=== PATIENT | male | born 1960 | race Asian ===

== ENCOUNTER 2021-05-20 18:11 | Inpatient (IN) | payer BC ==
[2021-05-20 18:20] VITALS: BMI 24.6
[2021-05-20] MEDS ORDERED: SODIUM CHLORIDE 1,000 ML IV STA (18:32)
[2021-05-20] MEDS ORDERED: KETOROLAC TROMETHAMINE 30 MG/1 ML VIAL IVPUSH ONE (18:32)
[2021-05-20] MEDS ORDERED: KETOROLAC TROMETHAMINE 30 MG/1 ML VIAL ONE (18:35)
[2021-05-20 18:50] LABS: BASO % 1.2 % (0-2.0); EOS % 1.9 % (0-4.5); HEMATOCRIT 38.5 % (35.4-49); HEMOGLOBIN 13.5 GM/dL (11.7-16.9); LYMPH % 14.6 % (8-40); MCH 32.2 pg (25.7-33.7); MEAN CELL VOLUME 91.9 fl (80-96); MEAN PLT VOLUME 7.9 fl (7.5-11.1); MONO % 6.7 % (3.8-10.2); NEUT % 75.6 % (42.8-82.8); PLATELET COUNT 363 10^3/uL (134-434); RBC 4.19 M/mm3 (4.00-5.60); RDW 12.4 % (11.9-15.9); WHITE BLOOD COUNT 11.9 K/mm3 (4.0-10.0)
[2021-05-20 18:57] LABS: PH,URINE 5.5 (5.0-8.0); URINE APPEARANCE Slightly Cloudy; URINE BILIRUBIN 2+ (NEGATIVE); URINE COLOR Amber; URINE GLUCOSE (UA) Negative (NEGATIVE); URINE KETONE Trace (NEGATIVE); URINE LEUK ESTERASE Negative (NEGATIVE); URINE NITRITE Positive (NEGATIVE); URINE PROTEIN 3+ (NEGATIVE)
[2021-05-20 19:12] LABS: CALCIUM 8.1 mg/dL (8.5-10.1)
[2021-05-20 19:13] LABS: ALBUMIN 3.1 g/dl (3.4-5.0)
[2021-05-20 19:17] LABS: CREATININE 1.1 mg/dL (0.55-1.3)
[2021-05-20 19:18] LABS: BILIRUBIN,TOTAL 0.6 mg/dL (0.2-1); TOT PROT 6.6 g/dl (6.4-8.2)
[2021-05-20] MEDS ORDERED: CEFTRIAXONE 1 GM in DEXTROSE 5%-WATER - 50 ML IVPB ONE (19:55)
[2021-05-20] MEDS ORDERED: CEFTRIAXONE 1 GM/50 ML BAG ONE (20:24)
[2021-05-20] MEDS ORDERED: SODIUM CHLORIDE 0.9% 500 ML INFUS.BAG IV ONE (21:06)
[2021-05-21] MEDS ORDERED: AZITHROMYCIN IVPB 500 MG in DEXTROSE 5%-WATER - 250 ML IVPB ONE (01:06)
[2021-05-21] MEDS ORDERED: ACETAMINOPHEN 325 MG TABLET (FP) PO PRN (01:38)
[2021-05-21] MEDS ORDERED: MORPHINE SULFATE 2 MG/ML VIAL IVPUSH PRN (01:38)
[2021-05-21] MEDS ORDERED: AZITHROMYCIN IVPB 500 MG/250 ML BAG IVPB ONE (01:45)
[2021-05-21] MEDS: SODIUM CHLORIDE 1,000 ML IV SCH ×2 (02:45→15:13)
[2021-05-21 06:23] LABS: BASO % 2.5 % (0-2.0); EOS % 1.1 % (0-4.5); HEMATOCRIT 35.6 % (35.4-49); HEMOGLOBIN 12.5 GM/dL (11.7-16.9); LYMPH % 11.7 % (8-40); MCH 32.4 pg (25.7-33.7); MCHC 35.2 g/dl (32.0-35.9); MEAN CELL VOLUME 92.1 fl (80-96); MEAN PLT VOLUME 8.5 fl (7.5-11.1); MONO % 5.2 % (3.8-10.2); NEUT % 79.5 % (42.8-82.8); PLATELET COUNT 305 10^3/uL (134-434); RBC 3.87 M/mm3 (4.00-5.60); RDW 12.4 % (11.9-15.9)
[2021-05-21 06:35] LABS: INR 1.05 (0.83-1.09); PROTHROMBIN TIME (PATIENT) 12.7 SEC (9.7-13.0)
[2021-05-21 06:46] LABS: ALBUMIN 2.8 g/dl (3.4-5.0); BLOOD UREA NITROGEN 14.3 mg/dL (7-18); CALCIUM 7.7 mg/dL (8.5-10.1); MAGNESIUM 2.3 mg/dL (1.8-2.4)
[2021-05-21 06:49] LABS: CREATININE 0.9 mg/dL (0.55-1.3); PHOSPHOROUS 3.7 mg/dL (2.5-4.9)
[2021-05-21 06:50] LABS: BILIRUBIN,TOTAL 0.5 mg/dL (0.2-1); TOT PROT 5.8 g/dl (6.4-8.2)
[2021-05-21] MEDS ORDERED: TAMSULOSIN HCL 0.4 MG CAP ONE (08:36)
[2021-05-21] MEDS: TAMSULOSIN HCL 0.4 MG CAP PO SCH (08:38)
[2021-05-21] MEDS ORDERED: cefTRIAXone SODIUM 1 GM VIAL ONE (09:23)
[2021-05-21] MEDS ORDERED: DEXTROSE 5%-WATER - 50 ML IVPB ONE (09:23)
[2021-05-21] MEDS: CEFTRIAXONE 1 GM in DEXTROSE 5%-WATER - 50 ML IVPB SCH (09:26)
[2021-05-21] MEDS: ENOXAPARIN NA (PORCINE) 40 MG/0.4 ML DISP.SYRIN SQ SCH (09:26)
[2021-05-21 09:46] LABS: EPI CELLS 6 /uL (0-25.1); HYALINE CASTS 1 /uL (0-3.1); PH,URINE 5.5 (5.0-8.0); URINE APPEARANCE CLEAR; URINE BACTERIA 5 /uL (0-1359); URINE BILIRUBIN NEGATIVE (NEGATIVE); URINE COLOR YELLOW; URINE GLUCOSE (UA) NEGATIVE (NEGATIVE); URINE KETONE NEGATIVE (NEGATIVE); URINE LEUK ESTERASE NEGATIVE (NEGATIVE); URINE NITRITE NEGATIVE (NEGATIVE); URINE PROTEIN NEGATIVE (NEGATIVE); URINE RBC 596 /uL (0-23.9); URINE UROBILINOGEN 0.2 mg/dL (0.2-1.0); URINE WBC 30 /uL (0-25.8)
[2021-05-21] MEDS ORDERED: guaiFENesin/CODEINE 5 ML UNIT-DOSE CUPS PO PRN (19:45)
[2021-05-21] MEDS ORDERED: FUROSEMIDE 40 MG/4 ML INJECTABLE VIAL IVPUSH ONE (19:52)
[2021-05-21 20:00] LABS: ARTERIAL BLD GAS O2 SATURATION 98.8 % (95-98); ARTERIAL BLOOD GAS PO2 136.1 mmHg (80-100); ARTERIAL BLOOD GAS pH 7.441 (7.350-7.450)
[2021-05-21 20:01] LABS: ALLENS TEST POSITIVE
[2021-05-22 08:47] LABS: BASO % 0.6 % (0-2.0); EOS % 1.9 % (0-4.5); HEMATOCRIT 35.3 % (35.4-49); HEMOGLOBIN 12.5 GM/dL (11.7-16.9); LYMPH % 4.6 % (8-40); MCH 32.5 pg (25.7-33.7); MCHC 35.5 g/dl (32.0-35.9); MEAN CELL VOLUME 91.5 fl (80-96); MEAN PLT VOLUME 8.5 fl (7.5-11.1); MONO % 6.2 % (3.8-10.2); NEUT % 86.7 % (42.8-82.8); PLATELET COUNT 295 10^3/uL (134-434); RBC 3.85 M/mm3 (4.00-5.60); RDW 12.2 % (11.9-15.9); WHITE BLOOD COUNT 15.9 K/mm3 (4.0-10.0)
[2021-05-22 09:09] LABS: CALCIUM 7.8 mg/dL (8.5-10.1)
[2021-05-22 09:10] LABS: ALBUMIN 2.9 g/dl (3.4-5.0); BLOOD UREA NITROGEN 14.3 mg/dL (7-18); MAGNESIUM 2.3 mg/dL (1.8-2.4)
[2021-05-22 09:13] LABS: PHOSPHOROUS 3.9 mg/dL (2.5-4.9)
[2021-05-22 09:15] LABS: BILIRUBIN,TOTAL 1.5 mg/dL (0.2-1)
[2021-05-22] MEDS ORDERED: cefTRIAXone SODIUM 1 GM VIAL ONE (10:04)
[2021-05-22] MEDS ORDERED: DEXTROSE 5%-WATER - 50 ML IVPB ONE (10:05)
[2021-05-22] MEDS: CEFTRIAXONE 1 GM in DEXTROSE 5%-WATER - 50 ML IVPB SCH (10:09)
[2021-05-22] MEDS: ENOXAPARIN NA (PORCINE) 40 MG/0.4 ML DISP.SYRIN SQ SCH (10:10)
[2021-05-22] MEDS: TAMSULOSIN HCL 0.4 MG CAP PO SCH (10:10)
[2021-05-22] MEDS: AZITHROMYCIN IVPB 500 MG/250 ML BAG IVPB SCH (10:46)
[2021-05-22 12:05] LABS: EPI CELLS 12 /uL (0-25.1); HYALINE CASTS 6 /uL (0-3.1); PH,URINE 5.5 (5.0-8.0); URINE APPEARANCE CLEAR; URINE BACTERIA 1 /uL (0-1359); URINE BILIRUBIN NEGATIVE (NEGATIVE); URINE COLOR YELLOW; URINE GLUCOSE (UA) NEGATIVE (NEGATIVE); URINE KETONE TRACE (NEGATIVE); URINE LEUK ESTERASE NEGATIVE (NEGATIVE); URINE NITRITE NEGATIVE (NEGATIVE); URINE PROTEIN TRACE (NEGATIVE); URINE RBC 860 /uL (0-23.9); URINE UROBILINOGEN 0.2 mg/dL (0.2-1.0)
[2021-05-22 19:14] LABS: HIV INTERPRETATION NEGATIVE (NEGATIVE)
[2021-05-22 19:14] LABS: SARS COV-2 MOLECULAR Negative (Negative)
[2021-05-23 08:49] LABS: BASO % 0.6 % (0-2.0); HEMATOCRIT 34.4 % (35.4-49); HEMOGLOBIN 12.1 GM/dL (11.7-16.9); LYMPH % 7.7 % (8-40); MCH 32.2 pg (25.7-33.7); MCHC 35.1 g/dl (32.0-35.9); MEAN CELL VOLUME 91.7 fl (80-96); MEAN PLT VOLUME 8.8 fl (7.5-11.1); MONO % 8.4 % (3.8-10.2); NEUT % 78.3 % (42.8-82.8); PLATELET COUNT 283 10^3/uL (134-434); RBC 3.75 M/mm3 (4.00-5.60); RDW 12.4 % (11.9-15.9); WHITE BLOOD COUNT 12.2 K/mm3 (4.0-10.0)
[2021-05-23] MEDS ORDERED: DEXTROSE 5%-WATER - 50 ML IVPB ONE (09:09)
[2021-05-23] MEDS ORDERED: cefTRIAXone SODIUM 1 GM VIAL ONE (09:09)
[2021-05-23 09:24] LABS: ALBUMIN 2.6 g/dl (3.4-5.0); BLOOD UREA NITROGEN 13.5 mg/dL (7-18); CALCIUM 8.4 mg/dL (8.5-10.1)
[2021-05-23 09:27] LABS: CREATININE 0.8 mg/dL (0.55-1.3)
[2021-05-23] MEDS: TAMSULOSIN HCL 0.4 MG CAP PO SCH (09:30)
[2021-05-23 09:31] LABS: BILIRUBIN,TOTAL 1.2 mg/dL (0.2-1); TOT PROT 5.9 g/dl (6.4-8.2)
[2021-05-23] MEDS: CEFTRIAXONE 1 GM in DEXTROSE 5%-WATER - 50 ML IVPB SCH (09:31)
[2021-05-23] MEDS: ENOXAPARIN NA (PORCINE) 40 MG/0.4 ML DISP.SYRIN SQ SCH (09:31)
[2021-05-23] MEDS: AZITHROMYCIN IVPB 500 MG/250 ML BAG IVPB SCH (11:22)
[2021-05-23 12:07] LABS: SARS-CoV-2 NAA Not Detected (Not Detected)
[2021-05-24 08:50] LABS: HEMATOCRIT 34.5 % (35.4-49); HEMOGLOBIN 12.2 GM/dL (11.7-16.9); MCHC 35.4 g/dl (32.0-35.9); MEAN CELL VOLUME 90.5 fl (80-96); MEAN PLT VOLUME 8.2 fl (7.5-11.1); PLATELET COUNT 281 10^3/uL (134-434); RBC 3.81 M/mm3 (4.00-5.60); RDW 12.4 % (11.9-15.9); WHITE BLOOD COUNT 8.8 K/mm3 (4.0-10.0)
[2021-05-24] MEDS ORDERED: DEXTROSE 5%-WATER - 50 ML IVPB ONE (09:07)
[2021-05-24] MEDS ORDERED: cefTRIAXone SODIUM 1 GM VIAL ONE (09:07)
[2021-05-24] MEDS: AZITHROMYCIN IVPB 500 MG/250 ML BAG IVPB SCH (09:13)
[2021-05-24] MEDS: TAMSULOSIN HCL 0.4 MG CAP PO SCH (09:13)
[2021-05-24] MEDS: ENOXAPARIN NA (PORCINE) 40 MG/0.4 ML DISP.SYRIN SQ SCH (09:15)
[2021-05-24] MEDS: CEFTRIAXONE 1 GM in DEXTROSE 5%-WATER - 50 ML IVPB SCH (09:16)
[2021-05-24 09:22] LABS: BLOOD UREA NITROGEN 11.2 mg/dL (7-18); CALCIUM 8.4 mg/dL (8.5-10.1)
[2021-05-24 09:25] LABS: CREATININE 0.8 mg/dL (0.55-1.3)
[2021-05-24 09:27] LABS: BILIRUBIN,TOTAL 0.6 mg/dL (0.2-1)
[2021-05-24 09:34] LABS: ALBUMIN 2.5 g/dl (3.4-5.0)
[2021-05-25 08:56] LABS: HEMATOCRIT 36.3 % (35.4-49); MCH 32.5 pg (25.7-33.7); MCHC 35.7 g/dl (32.0-35.9); MEAN CELL VOLUME 90.9 fl (80-96); MEAN PLT VOLUME 8.8 fl (7.5-11.1); PLATELET COUNT 309 10^3/uL (134-434); RBC 3.99 M/mm3 (4.00-5.60)
[2021-05-25 09:26] LABS: CALCIUM 8.6 mg/dL (8.5-10.1)
[2021-05-25 09:27] LABS: BLOOD UREA NITROGEN 13.6 mg/dL (7-18)
[2021-05-25 09:30] LABS: CREATININE 0.8 mg/dL (0.55-1.3)
[2021-05-25 09:35] LABS: N-TERMINAL BNP 88.8 pg/ml (5-125)
[2021-05-25] MEDS ORDERED: cefTRIAXone SODIUM 1 GM VIAL ONE (09:55)
[2021-05-25] MEDS ORDERED: DEXTROSE 5%-WATER - 50 ML IVPB ONE (09:55)
[2021-05-25] MEDS: CEFTRIAXONE 1 GM in DEXTROSE 5%-WATER - 50 ML IVPB SCH (09:59)
[2021-05-25] MEDS: TAMSULOSIN HCL 0.4 MG CAP PO SCH (09:59)
[2021-05-25] MEDS: ENOXAPARIN NA (PORCINE) 40 MG/0.4 ML DISP.SYRIN SQ SCH (10:00)
[2021-05-25] MEDS: AZITHROMYCIN IVPB 500 MG/250 ML BAG IVPB SCH (10:02)
[2021-05-25] MEDS ORDERED: PT OWN MED DRAWER 7, Y5N ONE (11:41)
[2021-05-26] MEDS: TAMSULOSIN HCL 0.4 MG CAP PO SCH (08:30)
[2021-05-26] MEDS ORDERED: DEXTROSE 5%-WATER - 50 ML IVPB ONE (09:48)
[2021-05-26] MEDS ORDERED: cefTRIAXone SODIUM 1 GM VIAL ONE (09:48)
[2021-05-26] MEDS: AZITHROMYCIN IVPB 500 MG/250 ML BAG IVPB SCH (09:54)
[2021-05-26] MEDS: CEFTRIAXONE 1 GM in DEXTROSE 5%-WATER - 50 ML IVPB SCH (09:54)
[2021-05-26] MEDS: ENOXAPARIN NA (PORCINE) 40 MG/0.4 ML DISP.SYRIN SQ SCH (09:54)
[2021-05-27 08:02] VITALS: BP 105/69; PULSE 86; TEMP 98.3
[2021-05-27] MEDS ORDERED: cefTRIAXone SODIUM 1 GM VIAL ONE (08:57)
[2021-05-27] MEDS ORDERED: DEXTROSE 5%-WATER - 50 ML IVPB ONE (08:57)
[2021-05-27] MEDS: TAMSULOSIN HCL 0.4 MG CAP PO SCH (09:04)
[2021-05-27] MEDS: CEFTRIAXONE 1 GM in DEXTROSE 5%-WATER - 50 ML IVPB SCH (09:04)
[2021-05-27] MEDS: ENOXAPARIN NA (PORCINE) 40 MG/0.4 ML DISP.SYRIN SQ SCH (09:04)
[2021-05-27] MEDS: AZITHROMYCIN IVPB 500 MG/250 ML BAG IVPB SCH (10:04)
== END 2021-05-27 13:34 | disposition home or self-care (01) | DRG 194 ==
LOC: JER 18:11 → JERBED 05-21 00:42 → UNDOADMIN 05-21 00:42 → JERBED 05-21 05:42 → J6S 05-21 08:43 → J8W 05-23 20:28
PROVIDERS: ADMIT Internal Medicine; ATTEND Internal Medicine
DX: J18.9 Pneumonia, unspecified organism (principal); N39.0 Urinary tract infection, site not specified; N13.6 Pyonephrosis; N20.0 Calculus of kidney; I34.0 Nonrheumatic mitral (valve) insufficiency; D72.829 Elevated white blood cell count, unspecified; R01.1 Cardiac murmur, unspecified; E88.09 Other disorders of plasma-protein metabolism, not elsewhere classified; R09.02 Hypoxemia; E78.5 Hyperlipidemia, unspecified; E87.70 Fluid overload, unspecified; R80.9 Proteinuria, unspecified; I50.9 Heart failure, unspecified
CPT/HCPCS: 36415; 36600; 71045-TC-FY; 71250-TC; 74176-TC; 80048; 80053; 81003; 82310; 82360; 82550; 82570; 82728; 82803; 83036; 83615; 83735; 83880; 83970; 84100; 84156; 84484; 85025; 85027; 85379; 85610; 85730; 86140; 86480; 86631; 86632; 87040; 87070; 87086; 87102; 87116; 87205; 87206; 87210; 87305; 87389; 87449; 87556; 87804; 87899; 93005; 93010; 93306-TC; 94010; 97116-GP; 97161-GP; 99285-25; C9803; U0003; U0005